=== PATIENT | female | born 1980 | race African-American/Black ===

== ENCOUNTER 2019-10-18 | Emergency (ER) | payer MEDICARE, MEDICAID ==
[2019-10-18] MEDS ORDERED: PERCOCET 5/325M1 TAB PO (01:08)
[2019-10-18] MEDS ORDERED: [UNRECOGNIZED DRUG - OTHER] TOP (01:10)
[2019-10-18 01:31] LABS: HEMATOCRIT 36.5 % (37.0-47.0); HEMOGLOBIN 12.2 g/dl (12.0-16.0); IMMATURE GRANULOCYTES 0.6 % (0.0-5.0); MEAN CORPUSCULAR HGB 26.4 pG CALC (26.0-32.0); MEAN CORPUSCULAR HGB CONC 33.4 g/L CALC (32.0-36.0); NEUT# 4.18 thou/uL (2.00-7.15); RED BLOOD COUNT 4.62 mill/uL (4.20-5.60); RED CELL DISTRI WIDTH 15.7 % (11.5-15.5)
[2019-10-18 01:51] LABS: ALBUMIN 4.3 g/dL (3.2-5.0); ALKALINE PHOSPHATASE 89 u/l (38-126); ANION GAP 12 (6-22 (CALC)); BILIRUBIN, TOTAL 0.3 mg/dL (0.0-1.4); BUN 16 mg/dL (7-17); BUN/CREATININE RATIO 19 (12-20 (CALC)); CARBON DIOXIDE 28 mmol/l (22-30); CHLORIDE 104 mmol/l (95-108); CPK 337 u/l (30-165); CREATININE 0.8 mg/dL (0.5-1.0); GFR > 60 ML/MIN (>=60 (CALC)); GFR FOR AFR.AMER. > 60 ML/MIN (>=60 (CALC)); POTASSIUM 3.4 mmol/l (3.5-5.1); SGOT/AST 36 u/l (14-36); SODIUM 141 mmol/l (137-146); TOTAL PROTEIN 8.1 g/dL (6.3-8.2)
[2019-10-18 02:01] LABS: MYOGLOBIN 45 ng/mL (0 - 62)
[2019-10-18] MEDS ORDERED: DOXYCYCL HYC100 MG PO (03:34)
== END 2019-10-18 03:52 | disposition home or self-care (01) ==
PROVIDERS: Family Medicine
DX: J18.9 Pneumonia, unspecified organism (principal); Z98.890 Other specified postprocedural states; R06.02 Shortness of breath